=== PATIENT | female | born 1945 | race Caucasian/White ===

== ENCOUNTER → 2017-01-25 | Outpatient (CLI) | payer MEDICARE, OTHER ==
[~2017-01-25] MED LIST: DICL1TAB2 PO; LANS15CA78 PO; LISI10TA2 PO
--- NOTE | 2017-01-25 14:27 | KCIC ---
INDICATION: Low back pain and right radiculopathy for one and a half years. Fall in February 2015. Known stenoses. TECHNIQUE: Sagittal T1, sagittal T2, sagittal STIR, axial T1, and axial T2 sequences are provided. Comparison is from April 29, 2015. FINDINGS: Supervising Nurse film demonstrates S-shaped curvature of the lower thoracic and lumbar spine, apex to the left at T12-L1 and to the right at L3. Slight retrolisthesis at L4-L5 is noted. There is endplate irregularity throughout the lumbar spine, most notably at T12-L1. There is apparent endplate sclerosis at T12-L1 which is extensive as well as well as associated edema. There is no hyperintensity within the interspace at this level. There are also multiple Schmorl's nodes. There is a T10 hemangioma. The conus medullaris terminates at the inferior endplate of L1. It is normal in signal intensity. The numbering system assumes 5 lumbar type vertebral bodies. Findings by individual level are as follows: T11-T12: Disc osteophyte complex and facet hypertrophy are noted. There is minimal canal stenosis, midline AP diameter of the thecal sac is 9-10 mm. There is minimal right foraminal narrowing. T12-L1: There is a disc osteophyte complex with irregular protruding right paracentral component. There is facet hypertrophy which is greater on the left. There is mild canal stenosis, midline AP diameter 9-10 mm. There is left lateral recess narrowing. There is high-grade left and minimal right foraminal narrowing. L1-L2: Disc osteophyte complex and facet hypertrophy are noted with [id number] left foraminal narrowing. Left foraminal herniation is noted. L2-L3: Disc osteophyte complex has a left foraminal protruding component. Facet hypertrophy is much greater on the right. There is bilateral lateral recess narrowing, greater on the right. Foraminal narrowing bilaterally is moderate. L3-L4: Disc osteophyte complex and facet hypertrophy are noted. Midline AP diameter of the thecal sac is narrowed to 7 mm. There is prominent epidural fat. There is negligible CSF surrounding the nerve roots at this level. Foraminal narrowing appears high-grade on the right and keel-iq-ikhatzmu on the left. L4-L5: There is unroofing of the disc in addition to the retrolisthesis. There is facet hypertrophy. There is lateral recess narrowing, greater on the left. Foraminal narrowing is moderate to severe on the left and moderate on the right. L5-S1: Disc osteophyte complex and facet hypertrophy are noted with moderate bilateral foraminal narrowing. There is no canal stenosis. Findings have increased from 2015. IMPRESSION: 1. Degenerative disc disease and facet hypertrophy throughout the lumbar spine, increased from 2015. Canal stenosis is greatest at L3-L4. Several levels of foraminal narrowing are noted. 2. Endplate sclerosis and irregularity at T12-L1 with associated edema, probably degenerative. This is significantly increased from prior study. Correlate with any concern for osteomyelitis and discitis. Electronically signed by: Sonu Diehl MD (01/25/2017 2:24 PM) [id number]
== END | disposition home or self-care (01) ==
LOC: KCIC MRI 13:28
PROVIDERS: ATTEND Anesthesiology Pain Medicine
DX: M51.16 Intervertebral disc disorders with radiculopathy, lumbar region (principal); M48.06 Spinal stenosis, lumbar region
CPT/HCPCS: 72148

== ENCOUNTER → 2020-08-06 | Outpatient (CLI) | payer MEDICARE, OTHER ==
[~2020-08-06] MED LIST changes: +ALBU2.5V8 IH; +ATOR40TA59 PO; +CALC500T54 PO; +CYCL10TA2 PO; +DICL1TAB5 PO; +FLUT100D2 IH; +GLUC-46 PO; +LANS30CA PO; +LISI10TA16 PO; -LISI10TA2 PO; +LISI1TAB20 PO; +MULT-121 PO; +PREG100C PO; +TAMS0.4C97 PO; +ZOLP5TAB PO
--- NOTE | 2020-08-06 14:02 | EKG ---
[facility] [address] [place] [address] Test Date: 2020-08-06 Test Time: 13:57:32 Pat Name: TRANG PABLO Department: Room: Gender: F Senior Technical Support Analyst: : [id number] Requested By: SPENSER ALLEN Order Number: [id number] Reading MD: Jorge Garcia Measurements Intervals [place] Rate: 73 P: 32 OR: 162 QRS: 29 QRSD: 74 T: 51 QT: 382 QTc: 424 Interpretive Statements SINUS RHYTHM NORMAL ECG RI6.02 No previous ECG available for comparison Electronically Signed On 08-06-2020 15:18:14 CDT by Jorge Garcia
[2020-08-06 14:05] LABS: BASO % 1 % (0-3); EOS # 0.2 x10^3/uL (0.0-0.7); EOS % 4 % (0-3); HEMOGLOBIN 13.9 g/dL (12.0-15.5); LYMPH # 0.7 x10^3/uL (1.0-4.8); LYMPH % 19 % (24-48); MEAN CORPUSCULAR HEMOGLOBIN 31 pg (25-35); MEAN CORPUSCULAR HGB CONC 34 g/dL (31-37); MEAN CORPUSCULAR VOLUME 91 fL (79-100); MONO # 0.6 x10^3/uL (0.0-1.1); MONO % 15 % (0-9); NEUT # 2.4 x10^3/uL (1.8-7.7); NEUT % 61 % (31-73); PLATELET COUNT 227 x10^3/uL (140-400); RED BLOOD COUNT 4.49 x10^6/uL (3.50-5.40); RED CELL DISTRIBUTION WIDTH 15.5 % (11.5-14.5); WHITE BLOOD COUNT 3.9 x10^3/uL (4.0-11.0)
[2020-08-06 14:13] LABS: PROTHROMBIN TIME PATIENT 12.3 SEC (11.7-14.0)
[2020-08-06 14:32] LABS: ALBUMIN 3.7 g/dL (3.4-5.0); CALCIUM 9.1 mg/dL (8.5-10.1); CREATININE 0.9 mg/dL (0.6-1.0); GFR 61.5; POTASSIUM 4.2 mmol/L (3.5-5.1)
--- NOTE | 2020-08-06 15:30 | RAD ---
PA and lateral chest. HISTORY: Preop right total knee arthroplasty PA and lateral views were taken of the chest. Comparison is made with an old study from 2011. There i s a large hiatus hernia which is new compared to the old exam. There is arthritis in both shoulders. There is linear scarring or atelectasis in both lung bases. There is mild elevation the right diaphra gm. There is no confluent pneumonia. There is dorsal kyphosis with old compression fractures at L1 an d L2 IMPRESSION: 1. Moderate to large hiatus hernia. 2. Linear scarring or atelectasis in both lung bases without other confluent infiltrates. 3. Old upper lumbar compression fractures with dorsal kyphosis. Electronically signed by: Lalo Dallas MD (08/06/2020 3:28 PM) [facility]
[2020-08-07 01:15] LABS: HEMOGLOBIN A1C 5.5 % (4.8-5.6)
== END ==
LOC: SURGPAT 13:22
PROVIDERS: ATTEND Orthopaedic Surgery
DX: Z01.812 Encounter for preprocedural laboratory examination (principal); K44.9 Diaphragmatic hernia without obstruction or gangrene; M17.11 Unilateral primary osteoarthritis, right knee; Z96.651 Presence of right artificial knee joint; Z20.822 Contact with and (suspected) exposure to COVID-19
CPT/HCPCS: 36415; 71046; 80048; 82040; 82306; 83036; 85025; 85610; 85651; 85730; 87641; 93005

== ENCOUNTER → 2020-08-22 | Outpatient (CLI) | payer MEDICARE, OTHER ==
[~2020-08-22] MED LIST changes: +ASPI325T11 PO
== END ==
LOC: LAB 14:16
PROVIDERS: ATTEND Orthopaedic Surgery
DX: Z01.812 Encounter for preprocedural laboratory examination (principal); M17.11 Unilateral primary osteoarthritis, right knee; Z20.822 Contact with and (suspected) exposure to COVID-19
CPT/HCPCS: U0003

== ENCOUNTER → 2020-09-03 | Outpatient (CLI) | payer MEDICARE, OTHER ==
[2020-08-28 09:00] VITALS: BP 109/48
--- NOTE | 2020-09-03 15:31 | RAD ---
. EXAM: Right lower extremity venous Doppler sonogram. HISTORY: Pain and swelling. TECHNIQUE: Stacy scale and color Doppler sonographic evaluation of the right lower extremity veins wit h spectral waveform analysis was performed. FINDINGS: There is normal color flow, normal compressibility and there are normal spectral waveforms in the common femoral, superficial femoral, popliteal, and posterior tibial veins. There has been gre ater saphenous vein ablation. IMPRESSION: No Doppler evidence of lower extremity deep venous thrombosis. Electronically signed by: Charley Ott MD (09/03/2020 3:28 PM) [id number]
== END ==
LOC: US 14:15
PROVIDERS: ATTEND Orthopaedic Surgery
DX: M79.89 Other specified soft tissue disorders (principal)
CPT/HCPCS: 93971

== ENCOUNTER → 2021-01-10 | Outpatient (CLI) | payer MEDICARE, OTHER ==
[2020-08-28 09:00] VITALS: BP 109/48
[~2021-01-10] MED LIST changes: +IOHEXOL 300 MG/ML 50 ML VIAL. INT ART ONE; +LANS15CA73 PO; -LANS15CA78 PO; +LIDOCAINE 1% Multi-Dose 20 ML VIAL. ID ONE; +methylPREDNISolone ACETATE 40 MG/ML VIAL. INT ART ONE
--- NOTE | 2021-01-13 08:17 | KCIC ---
IR ARTHROCENT INT JT ASP/INJ LT 01/10/2021 3:05 PM Comparison: None. Indication: Pain. Technique: Informed verbal and written consent was obtained after the explanation of risks, benefits, and possib le complications. Prior to the procedure, final verification was performed. Utilizing sterile technique, a left hip joint injection was performed under fluoroscopy. 1% Lidocaine was administered as a local anesthetic. A 22-gauge spinal needle was inserted into the joint capsule under fluoroscopic guidance. 80 mg Depo-Medrol and 5 mL lidocaine mixture was injected into the join t space after confirmation with 2 cc nonionic contrast. The patient tolerated the procedure well, and there were no immediate complications. Fluoroscopy time: 13 Number of images: 1 Impression: Successful left hip steroid joint injection under fluoroscopic guidance. Electronically signed by: Nyasia Crum MD (01/13/2021 8:14 AM) [id number]
== END | disposition home or self-care (01) ==
LOC: KCIC 14:49
PROVIDERS: ATTEND Orthopaedic Surgery
DX: M25.552 Pain in left hip (principal); M16.12 Unilateral primary osteoarthritis, left hip; I10 Essential (primary) hypertension; E78.00 Pure hypercholesterolemia, unspecified; K21.9 Gastro-esophageal reflux disease without esophagitis; Z79.82 Long term (current) use of aspirin; Z79.899 Other long term (current) drug therapy; Z98.890 Other specified postprocedural states; Z88.1 Allergy status to other antibiotic agents; Z88.2 Allergy status to sulfonamides
CPT/HCPCS: 20610; 77002; J1030; J3490; Q9967